=== PATIENT | female | born 1985 | race Caucasian/White ===

== ENCOUNTER 2017-06-05 10:51 | Inpatient (IN) ==
[2017-06-05] MEDS ORDERED: KETOROLAC 30 MG/ML INJECTION IVP ONE (11:19)
[2017-06-05] MEDS ORDERED: CEFTRIAXONE (ER USE ONLY) 1 GM in NS 100 ML IV ONE (11:19)
--- NOTE | 2017-06-05 11:22 | Emergency Department Report ---
Ear HPI - General Chief complaint: Ear Stated complaint: double ear pain Time Seen by Provider: 06/05/17 10:52 Source: patient Mode of arrival: ambulatory Limitations: no limitations - History of Present Illness HPI Narrative: She was seen in the [facility] on 06/02 for otitis externa. She was started on eardrops, right ear wick as well as oral amoxicillin. In continued to worsen and patient presented to the emergency room the following day on . At that time. Left ear began hurting patient had ear wick placed. She was given Toradol and encouraged to continue antibiotic medications. Today patient presents back to the emergency room for continued bilateral ear pain, worsening right-sided neck and right mastoid pain. Continues to have bilateral ear drainage, appears uncomfortable. MD Complaint: ear pain, ear discharge Location: bilateral Duration: constant Severity: moderate Relieving factors: NDAIDs, prescription analgesics, ear drops Context: recent illness Discharge from ear: yes - clear Associated symptoms ear: decreased hearing, external ear tenderness, ear swelling, neck swelling Treatment prior to arrival: eardrops, attempt at ear wax removal, oral analgesic - Related Data Home Medications Medication Instructions Recorded Confirmed Amoxicillin 500 mg PO TID 06/05/17 06/05/17 Neomycin/Polymyxin B/Hydrocort 4 drop RIGHT EAR QID 06/05/17 06/05/17 [Qmyknrml-Awtidzccr-Nx Ear Soln] Previous Rx's Medication Instructions Recorded Hydrocodone/APAP 5/325 [[place] 1 tab PO Q6HR PRN #10 tab 06/03/17 5/325] Allergies Allergy/AdvReac Type Severity Reaction Status Date / Time No Known Allergies Allergy Unverified 06/05/17 11:02 Review of Systems All systems: reviewed and negative except as stated ENT: Reports: as per HPI, ear pain, throat pain, other (bilteral ear drainage) Hematological/Lymphatic: Reports: as per HPI, lymphadenopathy, other (right mastoid tenderness and swelling) Allergic/Immunologic: Reports: facial swelling PFS Patient Stated Medical History Other HEENT Yes: FREQUENT EAR INFECTIONS PER PT Now No Clinic Medical History (Last Reviewed 06/02/17 @ 15:56 by Marixa Osborne Sydney) History of back problems (Chronic Medical) Asthma (Chronic Medical) Surgical History: *None Family History: Family History (Last Reviewed 01/18/18 @ 15:57 by LEONARDO Taylor) Father Diabetes Paternal Grandmother Diabetes Paternal Aunt Diabetes Mother Asthma - Social History Smoking status: Current some day smoker Substance use type: does not use Alcohol intake frequency: does not drink Housing: house Current residence: Apartment/Private Home Physical Exam - Limitations Limitations: no limitations - General General appearance: alert - Normal Exams: Head:: Normocephalic without trauma Eyes:: Pupils are PERRLA w/ EOMI Chest/Respirations:: Clear all al[place], with good airflow, and symmetry bilaterally Cardiovascular:: Regular rate and rhythm, without murmur or gallop, Pulses 2+ all extremities, capillary refill, <2 seconds all extremities Abdomen:: Bowel sounds positive, soft, non-tender, non-distended, no hepatosplenomegaly, masses or bruits noted Neurological:: Patient is alert, and oriented, cranial nerves, motor/sensory/ cerebellar, exams w/o gross deficits, to observation Psychiatric:: Patient exhibits, appropriate attention, emotion and affect - Expanded ENT Exam External ear exam: Present: mastoid tenderness (right), pain with movement, periauricular adenopathy (right). Absent: auricular hematoma TM/Canal exam: Bilateral TM: loss of landmarks, canal discharge, canal tenderness Nose exam: Absent: sinus tenderness, nasal deviation, septal hematoma Nasal speculum exam: Bilateral: normal Mouth exam: Present: normal external inspection. Absent: tongue swelling, laceration Throat exam: Present: normal inspection. Absent: tonsillar erythema, tonsillar exudate - Expanded Neck Exam Neck exam focused ED: Present: tenderness (other) (right mastoid and lateral cervicle neck tenderness) Course Vital Signs Pulse Rate 83 06/05/17 11:02 Respiratory Rate 16 06/05/17 11:02 Blood Pressure 131/84 06/05/17 11:02 Pulse Oximetry 96 06/05/17 11:02 Temperature 98.1 F 06/05/17 13:27 Pulse Rate 64 06/05/17 13:27 Respiratory Rate 16 06/05/17 13:27 Blood Pressure 126/59 06/05/17 13:27 Pulse Oximetry 98 06/05/17 13:27 Ear - MDM Narrative Medical decision making narrative: 1305- [facility]. Suggest history, present illness , clinical exam, lab and x-ray findings 1320- Spoke with Dr Everett paredes ENT. He agrees with admission and IV antibiotics. He is able to see patient tomorrow in consultation. Admit patient as inpatient as she has failed outpatient treatment. Suspect she has bilateral otitis with lymphadenopathy and new onset diabetes. Past plan for admission with patient and she is in agreement. - Differential Diagnosis Likely: otitis externa, otitis media, ruptured TM - Lab Data Attestation: I reviewed the patient's lab results. Result diagrams: 06/05/17 11:31 06/05/17 11:31 Lab Results 06/05/17 06/05/17 06/05/17 Range/Units 11:31 11:31 11:31 WBC 18.6 H (4.5-11.0) T/MM3 RBC 4.35 (4.00-5.20) M/MM3 Hgb 13.1 (12-16) GM/DL Hct 38.9 (36-46) % MCV 89.4 (80-100) UM3 MCH 30.1 (26-34) UUG MCHC 33.7 (31-37) GM/DL RDW Std Deviation 41.3 (36.9-50.2) FL Plt Count 306 (130-400) T/MM3 MPV 9.9 (9.4-12.4) UM3 Immature Gran % (Auto) Not performed Neut % (Auto) Not performed Lymph % (Auto) Not performed [place] % (Auto) Not performed Eos % (Auto) Not performed Baso % (Auto) Not performed Neut # (Auto) Not performed Lymph # (Auto) Not performed [place] # (Auto) Not performed Eos # (Auto) Not performed Baso # (Auto) Not performed Abs Immat Gran (auto) Not performed Neutrophils % (Manual) 68.0 H (33-66) % Band Neutrophils % 1.0 (0-6) % Lymphocytes % (Manual) 26.0 (23-45) % Monocytes % (Manual) 4.0 (0-9.0) % Basophils % (Manual) 1.0 (0-2) % Neutrophils # (Manual) 12.6 H (1.8-7.7) T/MM3 Band Neutrophils # 0.2 T/MM3 Lymphocytes # (Manual) 4.8 (1-4.8) T/MM3 Monocytes # (Manual) 0.7 (0-0.8) T/MM3 Basophils # (Manual) 0.2 (0-0.2) T/MM3 RBC Morph Comment Normal Turbidity < 20 (0-20) Sodium 139 (134-144) MEQ/L Potassium 4.4 (3.6-5) MEQ/L Chloride 102 (98-107) MEQ/L Carbon Dioxide 26 (22-30) MEQ/L Anion Gap 11 (5-15) MEQ/L BUN 13.0 (7-17) MG/DL Creatinine 0.5 L (0.7-1.2) MG/DL GFR Calculation 145 BUN/Creatinine Ratio 26 (6-26) RATIO Glucose 320 H (65-110) MG/DL Calculated Osmolality 280 (261-280) MOSM/KG Calcium 9.2 (8.4-10.2) MG/DL Icterus Index < 2 (0-7) Plasma Lactate 1.1 (0.6-2.2) MMOL/L Serum , Qual Negative (Negative) Specimen Hemolysis 76 H (0-25) - Radiology Data Attestation: I reviewed the patient's radiology results. Disposition Clinical Impression: Bilateral otitis media with effusion, Diabetes mellitus, new onset Disposition: 02 To [facility] Acute Care Condition: Stable Prescriptions: No Action Neomycin/Polymyxin B/Hydrocort [Zvegqrzm-Ipfxhmxim-Kn Ear Soln] 4 drop RIGHT EAR QID Hydrocodone/APAP 5/325 [[place] 5/325] 1 tab PO Q6HR PRN #10 tab PRN Reason: pain Amoxicillin 500 mg PO TID Time of Disposition: 13:32 - Seen By: midlevel
[2017-06-05] MEDS ORDERED: SALINE FLUSH 10ml SYRINGE IV ONE (11:25)
[2017-06-05] MEDS: NS 1,000 ML IV SCH ×4 (12:00→16:38)
[2017-06-05] MEDS: ONDANSETRON 4 MG/2 ML INJECTION IVP PRN (12:01)
[2017-06-05] MEDS ORDERED: SALINE FLUSH 10ml SYRINGE ONE (12:10)
[2017-06-05] MEDS ORDERED: IOHEXOL 300mg/ml 75ml INJECTION ONE (12:10)
[2017-06-05] MEDS ORDERED: NS 100 ML ONE (12:10)
--- NOTE | 2017-06-05 14:16 | History & Physical Report ---
History of Present Illness Date: 06/05/17 Chief complaint: Bilateral severe ear pain HPI: Minerva is a very pleasant 32 yo female who has been struggling with severe ear pain since around . She attempted OTC analgesics, ear wax removal, etc. She continued to worsen, and was seen in Urgent Care with ear wick placement and antibiotic initiation. Left ear began hurting, so she presented to the ER. Ear wick to left ear was placed, antibiotics continued. She presented to the ER again today due to severity of pain, ongoing drainage, and difficulty closing mouth. She has a long history of recurrent ear infections , so she was attempting to manage at home to the best of her ability. She did undergo a CT, which confirmed bilateral OE, and also acute mastoiditis. Dr. Peguero was consulted by the ER, and is agreeable to seeing patient tomorrow. Patient reports that she did have a "cold" within the last two weeks. Those symptoms were fairly mild. Denies SOA or persistent cough currently. Her BG was found to be elevated in the ER- she has no person history of known DM. Multiple family members with diabetes. She also reports that her BP has been elevated intermittently at her recent UC/ ED visits. She does not think she has a prior history of HTN. No current PCP, so she has not had a physical in some time. Chart is reviewed- she is noted to have a history of GBS labial abscess in the past requiring local wound intervention. She denies history of surgical intervention. Has been otherwise healthy with the exception of intermittent asthma. Review of Systems - Constitutional Constitutional: Present: fever(s), headache(s) - EENMT Ears: Present: ear discharge, ear pain, other (Diminished hearing. ) Balance: Absent: vertigo, ataxia Nose: Absent: change in smell, obstruction Mouth/Throat: Present: pain (Difficulty eating due to jaw pain.). Absent: sore throat, painful swallowing - Cardiovascular Cardiovascular: Absent: chest pain, dyspnea on exertion, edema - Respiratory Respiratory: Absent: cough, dyspnea, dyspnea on exertion - Gastrointestinal Gastrointestinal: Absent: abdominal pain, change in bowel habits, nausea - Musculoskeletal Musculoskeletal: Absent: back pain, limited range of motion - Neurological Neurological: Absent: abnormal gait, abnormal movements, headache(s) - Allergic/Immunologic Allergic/Immunologic: Absent: tongue swelling, throat swelling Past Medical History Patient Stated Medical History Other HEENT Yes: FREQUENT EAR INFECTIONS PER PT Now No Clinic Medical History (Last Reviewed 06/02/17 @ 15:56 by LEONARDO Taylor) History of back problems (Chronic Medical) Asthma (Chronic Medical) Surgical History: *None Family History: Family History Father Diabetes Paternal Grandmother Diabetes Paternal Aunt Diabetes Mother Asthma Family History Updates: I have reviewed PMH/PSH/FH/SH with pt. - Social History Smoking status: Current some day smoker Substance use type: does not use Alcohol intake frequency: a few times a month Housing: house Household members: spouse Current residence: Apartment/Private Home Medications Home Medications Medication Instructions Recorded Confirmed Type Amoxicillin 500 mg PO TID 06/05/17 06/05/17 History Neomycin/Polymyxin B/Hydrocort 4 drop RIGHT EAR QID 06/05/17 06/05/17 History [Lqbqwfoh-Rojaksgmu-Gl Ear Soln] Allergies Allergy/AdvReac Type Severity Reaction Status Date / Time No Known Allergies Allergy Unverified 06/05/17 11:02 Exam Vital Signs: Temperature 98.1 F 06/05/17 13:27 Pulse Rate 64 06/05/17 13:27 Respiratory Rate 16 06/05/17 13:27 Blood Pressure 126/59 06/05/17 13:27 Pulse Oximetry 98 06/05/17 13:27 Height/Weight/BMI: Height 1.57 m Weight 103.8 kg - Constitutional Present: no acute distress, well nourished, well developed, morbidly obese, cooperative - Routine HEENT Exam Head: Present: normocephalic, atraumatic, facial swelling Eye: Present: EOMI, PERRL ENT: Present: mucous membranes dry Comments: Patient unable to fully open mouth due to pain. Tongue is dry. No visible lesions of oropharynx. - Detailed ENT Exam Ear: Present: canal tenderness, canal discharge, canal swelling Oral mucosa: Present: dry. Absent: palatal petechiae Comments: I deferred ear canal exam due to severe pain/tenderness. Patient is SAMISH due to fluid in the ear. - Routine Neck Exam Present: supple, full ROM, lymphadenopathy, tenderness. Absent: swelling Comments: Full ROM. No neck tenderness with movement. She denies SANCHEZ. - Routine Chest/Breast/Axilla Exam Chest wall: Absent: tenderness Breast: Absent: tenderness - Routine Respiratory Exam Present: CTA bilaterally. Absent: accessory muscle use, dyspnea, decreased breath sounds, rales, rhonchi, wheezes - Routine Cardiovascular Exam Present: RRR, S1, S2, no murmur - Routine Abdominal Exam Present: soft, normoactive bowel sounds, non distended, non tender - Routine Extremities Exam Present: no edema, non tender - Routine Back/Spine/Pelvis Exam Back/Spine: Present: full ROM. Absent: vertebral tenderness, pain with flexion - Routine Skin Exam Present: intact, dry, warm - Routine Neurological Exam Present: alert, oriented X3, abnormal gait, moving all extremities, normal speech. Absent: sensory deficit, motor deficit, hearing grossly intact ( Hearing is diminished due to effusions. ) She is fully alert, moving w/o difficulty. Participates in exam w/o difficulty. - Routine Psychiatric Exam Present: normal affect, normal thought process, cooperative, good insight, good judgment Results - Labs CBC & Chem 7: 06/05/17 11:31 06/05/17 11:31 - Imaging and Cardiology CT scan - head Status: image reviewed by me Additional comments: Bilateral OE. Bilateral mastoid effusions. Some cervical LAD. Assessment and Plan (1) Acute pain Current visit: Yes Status: Acute (2) Morbid obesity with BMI of 40.0-44.9, adult Current visit: Yes Status: Acute (3) Bilateral otitis media with effusion Current visit: Yes Status: Acute (4) Diabetes mellitus, new onset Current visit: Yes Status: Acute Assessment and Plan: Impression: 1. Severe bilateral OE with mastoiditis, failed outpatient treatment. 2. DM2, new onset. 3. Acute pain 4. Morbid obesity 5. Hx of Asthma Plan: 06/05/16 Consult ENT- Notified by ER. He will see tomorrow. Start IV Zosyn for broad coverage. Will ask RN to get cx of drainage if possible. Suspect difficulty with treating due to DM2. Will add steroids, pain control. Assess A1c, monitor Accu checks. I did d/w pt- we will use insulin right now- may be able to transition to oral meds before dismissal. Steroids will increase her BG- will need to monitor. SOFYA depending on pain. Pain control. Monitor BP. Assess thyroid, FLP. PRN Albuterol if any wheezing. 06/05/2017-5:20 PM-I reviewed this chart, the patient history, and the PROPERTY FIELD ADJUSTER's/PA 's documented findings as above. We discussed and formulated the assessment and plan as above with the additions below.-Dr. Malcolm The patient was seen this evening in her room. She had multiple family members present. She stated that she had a cold a couple of weeks ago and then last on June 02 she noticed pain and drainage from her right ear. She went to immediate care and an ear wick was placed and she was started on amoxicillin. Then yesterday she had pain and drainage in the left ear and a wick was placed in this ear as well and she was started on [place] for pain. She presented to the emergency room today because she was having increased pain in both the ears and swelling around the right ear and under her jaw. She has had no fevers. She states her jaw hurts to eat. She was given pain medications and her pain is now a 3 on a scale of 1-10. She denies any headache. She denies any chest pain. She has history of asthma as a child and has sometimes needed breathing treatments or an inhaler in adulthood but has not had problems in quite a while. She denies any cough or shortness of breath. She denies nausea, vomiting or diarrhea. She was found to have a blood sugar of 320 in the emergency room. She has not previously been diagnosed with diabetes. Other than asthma and frequent ear infections, she has been healthy. She has not had any surgeries in the past. Patient states that she uses earplugs at work and wonders if this may have contributed to her otitis externa. On exam she is alert and oriented and in no acute distress. She appears nontoxic. HEENT reveals sclerae to be anicteric and pupils are equal. Oropharynx is moist. She has swelling and tenderness below the angle of the jaw on the right. She has some tenderness over the mastoid on the right but not on the left. She has some drainage from both ears. Neck is supple. Chest is clear to auscultation. Cardio vascular reveals a regular rate and rhythm. Abdomen is soft and nontender. Extremities are free of edema. Skin is warm and dry and without rashes. Impression and plan Bilateral otitis externa, and mastoiditis-she was given Rocephin in the emergency room and will start Zosyn. Dr. Peguero was notified of the patient and findings on her CT by ER GREEN MARKETER. He recommended admission and IV antibiotics and he would see the patient on Tuesday. Newly diagnosed, poorly controlled diabetes-check hemoglobin A1c, diabetes education, initiate Lantus, sliding scale insulin Morbid obesity History of asthma-I did encourage the patient to notify the nurse if she should have any difficulties with her breathing. I did encouraged patient to establish with a primary care provider at discharge. DVT Prophylaxis: Lovenox GI Prophylaxis: other (PPI) Resuscitation Status: Full Code - Time spent with patient Time with patient PN: 50 minutes - Physician Narrative Physician: Letitia Malcolm MD Narrative: Date: 06/05/17 Time: 1410 Hospital Course Summary Disclaimer: The visit summary below is not to be considered part of the above Progress Note. Hospital Course: Impression: 1. Severe bilateral OE with mastoiditis, failed outpatient treatment. 2. DM2, new onset. 3. Acute pain 4. Morbid obesity 5. Hx of Asthma Plan: 06/05/16 Consult ENT- Notified by ER. He will see tomorrow. Start IV Zosyn for broad coverage. Will ask RN to get cx of drainage if possible. Suspect difficulty with treating due to DM2. Will add steroids, pain control. Assess A1c, monitor Accu checks. I did d/w pt- we will use insulin right now- may be able to transition to oral meds before dismissal. Steroids will increase her BG- will need to monitor. SOFYA depending on pain. Pain control. Monitor BP. Assess thyroid, FLP. PRN Albuterol if any wheezing.
[2017-06-05] MEDS ORDERED: GLUCOSE ORAL GEL 40% 37.5gm PO PRN (15:23)
[2017-06-05] MEDS ORDERED: HYDROMORPHONE 2 MG/ML INJECTION IVP PRN (15:23)
[2017-06-05] MEDS ORDERED: DEXTROSE 50% SYRINGE 50ml (1 AMP) IVP PRN (15:23)
[2017-06-05 15:29] VITALS: BMI 42.7
--- NOTE | 2017-06-05 15:54 | CT Scan Report ---
Indication: Right neck swelling, mastoid tenderness CT soft tissue neck w con: Comparison: None Technique: Patient scanned from the midbrain to the upper chest after 100 cc Omni 300 intravenous contrast is used with dose reduction imaging technology and reformatted sagittal, coronal as well as initial axial images. Findings: Patient demonstrated no acute findings in the base of the neck or upper chest. Vascular structures are intact. Visualized sinuses showed mild thickening the nasal turbinates but no acute sinus abnormality was appreciated. Patient does show soft tissue swelling about both the external auditory canals which show almost complete opacification. There are some subtle opacified mastoid air cells as well. No fracture or bony destructive lesion appreciated. Nasal and oropharyngeal soft tissues were unremarkable. Patient showed some cervical lymph nodes some of which are measuring about a centimeter. The airway is patent. Focal cord and lower cervical region are unremarkable. Patient shows some no acute bony findings in the cervical spine. Impression: 1. Patient showed extensive soft tissue swelling with what appear to be a opacification of both external ear canals with minimal fluid in some of the mastoid air cells. 2. No marked sinus disease or soft tissue swelling about the nasal oropharynx. 3. Nonspecific cervical lymph nodes which are most likely reactive to the inflammatory changes in the external ears. 4. No additional acute findings. .
[2017-06-05] MEDS: METHYLPREDNISOLONE SOD SUCC 125mg/2ml INJECTION IVP SCH ×2 (16:09→20:40)
[2017-06-05] MEDS: PIPERACILLIN/TAZOBACTAM 3.375 GM in NS 100 ML IV SCH ×2 (16:10→20:40)
[2017-06-05] MEDS: SALINE FLUSH 10ml SYRINGE IV PRN (16:10)
[2017-06-05] MEDS: HYDROCODONE/APAP 2.5mg-108mg/5ml ORAL LIQUID PO PRN (16:21)
[2017-06-05] MEDS ORDERED: INSULIN ASPART 100unit/ml INJECTION SQ SCH (20:30)
[2017-06-05] MEDS ORDERED: INSULIN GLARGINE 100unit/ml INJECTION SQ SCH (21:00)
[2017-06-06] MEDS: NS 1,000 ML IV SCH ×3 (02:18→11:19)
[2017-06-06] MEDS: HYDROCODONE/APAP 2.5mg-108mg/5ml ORAL LIQUID PO PRN ×2 (02:25→12:21)
[2017-06-06] MEDS: PIPERACILLIN/TAZOBACTAM 3.375 GM in NS 100 ML IV SCH ×4 (02:26→23:37)
[2017-06-06] MEDS: METHYLPREDNISOLONE SOD SUCC 125mg/2ml INJECTION IVP SCH ×3 (02:26→18:03)
[2017-06-06] MEDS: ONDANSETRON 4 MG/2 ML INJECTION IVP PRN ×2 (03:49→12:21)
[2017-06-06] MEDS ORDERED: ALBUTEROL 2.5mg/3ml (0.083%) NEB AEROSOL PRN (04:39)
[2017-06-06] MEDS: INSULIN ASPART 100unit/ml INJECTION SQ PRN ×4 (06:16→22:09)
[2017-06-06] MEDS ORDERED: INSULIN ASPART 100unit/ml INJECTION SQ ONE (07:00)
[2017-06-06] MEDS: PANTOPRAZOLE 40 MG INJECTION IVP SCH (08:49)
--- NOTE | 2017-06-06 10:17 | Progress Note ---
- Date 06/06/17 Subjective: Minerva was just finishing up a conversation with our dietitian about a carbohydrate consistent diet. She states that she recently [place] [employer] to [place], and her told her that he will help her eat the right foods. Minerva also states that she has 2 sisters who have diabetes, and they have offered to help her. She states her pain is much better today, it has gone down from a 9/10 to 5-6/10. She is able to eat more easily. She can hear a little bit out of her left ear today. She hasn't been able to sleep well for the last few nights, only 1-2 hours a night. Objective Vital signs: Temperature 97.2 F 06/06/17 07:37 Pulse Rate 66 06/06/17 07:37 Respiratory Rate 16 06/06/17 07:37 Blood Pressure 146/76 H 06/06/17 07:37 Pulse Oximetry 99 06/06/17 07:37 Height/Weight/BMI: Height 1.57 m Weight 106.6 kg Body Mass Index 42.7 - Constitutional Present: no acute distress, well nourished, well developed - Routine HEENT Exam Eye: Present: PERRL. Absent: conjunctival icterus, scleral injection ENT: Present: mucous membranes moist. Absent: oropharynx clear (dried drainage to both ear canals), external ear normal (mild swelling) Comments: Hirsutism. Bilateral cervical and preauricular lymphadenopathy - Routine Respiratory Exam Present: CTA bilaterally - Routine Cardiovascular Exam Present: RRR, S1, S2 - Routine Abdominal Exam Present: soft, normoactive bowel sounds, non distended, non tender - Routine Extremities Exam Present: no edema - Routine Skin Exam Present: intact, dry, warm - Routine Neurological Exam Present: alert, oriented X3 - Routine Lymphatic Exam Lymphatic: Present: adenopathy - Routine Psychiatric Exam Present: normal affect, normal thought process, cooperative Results - Labs CBC & Chem 7: 06/08/17 03:53 06/08/17 03:53 Microbiology Results: Microbiology 06/05/17 15:34 Peripheral/Iv Start Blood Culture - Preliminary Culture Initiated - Results Pending 06/05/17 15:40 Peripheral/Iv Start Blood Culture - Preliminary Culture Initiated - Results Pending Assessment and Plan (1) Bilateral otitis media with effusion Status: Acute (2) Diabetes mellitus, new onset Status: Chronic (3) Acute pain Status: Acute (4) Morbid obesity with BMI of 40.0-44.9, adult Status: Chronic Assessment and Plan: Impression: 1. Severe bilateral OE with mastoiditis, failed outpatient treatment. 2. DM2, new onset and poorly controlled. Hemoglobin A1c was 11.8% 3. Acute pain 4. Morbid obesity 5. Hx of Asthma Plan: 06/06/16 Continue Zosyn and Cortisporin otic, day #2. Anticipate evaluation by Dr. Peguero today. Symptoms are improving. White count has decreased to 16,000. She has been afebrile. BC pending. DC IVF. Taper IV steroids (Solu-Medrol 62.5 mg) from QID to TID. Continue [place] suspension for pain control. Continue carbohydrate consistent diet and diabetic education. She will need outpatient education. Blood sugars continue to run very high, 300-400+. Will consult Dr. Turpin - discussed case with him and he will see her later today. TSH was normal at 3.69. Discussed with dietitian, Anne Marie Silva. Addendum by Dr. James: Seen and examined patient on same day as the above note. Agree with subjective note, physical exam, assessment and plan. Comprehensive physical findings correlate to the above note. Documented on Dragon speech to text. Efforts to correct speech recognition errors performed, but variation may exist DVT Prophylaxis: SCD's GI Prophylaxis: Protonix Resuscitation Status: Full Code - Physician Narrative Narrative: Date: 06/06/17 Time: 1015 Hospital Course Summary Disclaimer: The visit summary below is not to be considered part of the above Progress Note. Hospital Course: Plan: 06/05/17 Consult ENT- Notified by ER. He will see tomorrow. Start IV Zosyn for broad coverage. Will ask RN to get cx of drainage if possible. Suspect difficulty with treating due to DM2. Will add steroids, pain control. Assess A1c, monitor Accu checks. I did d/w pt- we will use insulin right now- may be able to transition to oral meds before dismissal. Steroids will increase her BG- will need to monitor. SOFYA depending on pain. Assess thyroid, FLP. PRN Albuterol if any wheezing. 06/06/17 Continue Zosyn and Cortisporin otic, day #2. Anticipate evaluation by Dr. Peguero today. Symptoms are improving. White count has decreased to 16,000. She has been afebrile. BC pending. DC IVF. Taper IV steroids (Solu-Medrol 62.5 mg) from QID to TID. Continue [place] suspension for pain control. Continue carbohydrate consistent diet and diabetic education. She will need outpatient education. Blood sugars continue to run very high, 300-400+. Will consult Dr. Turpin - discussed case with him and he will see her later today. TSH was normal at 3.69.
[2017-06-06] MEDS ORDERED: INSULIN ASPART 100unit/ml INJECTION SQ SCH (17:00)
--- NOTE | 2017-06-06 18:59 | Consultation ---
DATE OF CONSULT 06/06/2017 REASON FOR CONSULTATION Newly diagnosed diabetes mellitus. HISTORY OF PRESENT ILLNESS This 32-year-old female has had a chronic history of otitis externa. She recently had another exacerbation and was seen in Urgent Care, then the emergency room, then again presented on the day of admission to the emergency room with increasing severity of pain, ongoing drainage and difficulty closing her mouth even though she had been started on antibiotics. She had a CT scan that confirmed bilateral otitis externa and acute mastoiditis so she was admitted to the hospital. In the course of her admission she was found to have an elevated serum glucose of 457. She has no prior history of diabetes. However, she did report having polydipsia and polyuria as well as nocturia. She denied any history of thyroid problems, headaches, blurry vision, chest pain or neuropathy. She was given 10 units of Lantus last night, but glucose levels did not respond much. FBS was 337 and after breakfast joyce back to 418. She was also started on steroids which will likely exacerbate the hyperglycemia. REVIEW OF SYSTEMS ENT: Remarkable for ear discharge and pain with diminished hearing. She has had some difficulty eating due to jaw pain. She denies sore throat or trouble swallowing. RESPIRATORY: Remarkable for intermittent exacerbations of asthma. CARDIOVASCULAR: No LANE or edema. GI: No change of bowel habits or abdominal pain. MUSCULOSKELETAL: No back pain or myalgias. Neurological: No headache or paresthesias. PAST MEDICAL HISTORY Recurrent otitis externa and asthma. PAST SURGICAL HISTORY She has had no surgeries. FAMILY HISTORY Remarkable for diabetes in her father, paternal grandmother and paternal aunt. Mother has asthma. There is also family history of hypothyroidism. SOCIAL HISTORY The patient drinks alcohol and smokes tobacco socially a few times a month. She has a remote past history of using marijuana. PHYSICAL EXAMINATION VITAL SIGNS: Afebrile. Blood pressure 146/76, pulse 69, respirations 16. GENERAL: Well-developed, well-nourished, obese female, alert, oriented and in no acute distress. HEENT: Atraumatic, normocephalic. Bilateral mastoid tenderness. EOMI, PERRL. Dry mucous membranes. NECK: Without thyromegaly or lymphadenopathy. LUNGS: Clear. HEART: Regular rate and rhythm. ABDOMEN: Normal bowel sounds without masses, tenderness or organomegaly. EXTREMITIES: Without edema. 2+ radial and dorsalis pedis pulses. SKIN: Warm and dry. NEUROLOGIC: Moves all extremities. PSYCHIATRIC: Normal affect. Normal thought process with good insight and good judgment. LABORATORY Glucometer readings: 337 fasting, 418 after breakfast, 404 after lunch. Creatinine 0.5, ALT 60, cholesterol 184, triglycerides 108, HDL 29, LDL 133, TSH 3.69. HgA1c 11.8. WBC 16.0 with 91% neutrophils. ASSESSMENT 1. Diabetes mellitus, newly diagnosed, probably type 2 considering her lack of acidosis with an acute infection. To further assess this we will get a simultaneous glucose and C-peptide. 2. Dyslipidemia. This should be remeasured after her diabetes is brought into better control although she appears to need a statin as the LDL would not be expected to drop 30%. 3. Obesity. 4. Bilateral otitis externa and mastoiditis. RECOMMENDATIONS Start scheduled insulin delivery with 6 units NovoLog for meals and 18 units Lantus at bedtime. Continue sliding scale for delivering correction doses. C- peptide and glucose will be measured fasting in the morning. Start atorvastatin 10 mg daily. Thank you very much for asking my assistance in caring for this pleasant young lady. I will continue to follow her along with you during her hospitalization. GISELA
[2017-06-06] MEDS: INSULIN GLARGINE 100unit/ml INJECTION SQ SCH (22:11)
[2017-06-06] MEDS: ATORVASTATIN 10 MG TABLET PO SCH (23:37)
[2017-06-06] MEDS: SALINE FLUSH 10ml SYRINGE IV PRN (23:38)
[2017-06-07] MEDS: METHYLPREDNISOLONE SOD SUCC 125mg/2ml INJECTION IVP SCH ×3 (03:22→17:14)
[2017-06-07] MEDS: PIPERACILLIN/TAZOBACTAM 3.375 GM in NS 100 ML IV SCH ×4 (04:49→21:19)
[2017-06-07] MEDS ORDERED: INSULIN ASPART 100unit/ml INJECTION SQ SCH ×14 (06:30→17:30)
[2017-06-07] MEDS ORDERED: INSULIN GLARGINE 100unit/ml INJECTION SQ ONE ×2 (07:37→21:42)
--- NOTE | 2017-06-07 07:51 | Endocrinology Progress Note ---
Subjective Principal diagnosis: Diabetes mellitus Interval history: Feels better. Good appetite. Now on scheduled insulin, but still quite hyperglycemic. Has had training on fingerstick glucose testing and has performed one herself. Should go on to receive training on insulin injection today. Exam Vital signs: Temperature 97.4 F 06/07/17 07:27 Pulse Rate 50 L 06/07/17 07:27 Respiratory Rate 18 06/07/17 07:27 Blood Pressure 147/75 H 06/07/17 07:27 Pulse Oximetry 98 06/07/17 07:27 - Constitutional no acute distress - Routine HEENT Exam Head: Present: normocephalic, atraumatic Eye: Present: EOMI, PERRL ENT: Present: mucous membranes moist - Routine Neck Exam Absent: lymphadenopathy, thyromegaly - Routine Respiratory Exam Absent: dyspnea - Routine Cardiovascular Exam Present: RRR. Absent: murmur - Routine Abdominal Exam Present: normoactive bowel sounds - Routine Extremities Exam Absent: edema - Routine Skin Exam Present: dry, warm - Routine Neurological Exam Present: alert, oriented X3, moving all extremities, normal speech - Routine Psychiatric Exam Present: normal affect, normal thought process, good insight, good judgment - Additional findings Additional findings: Laboratory Tests 06/06/17 06/07/17 06/07/17 20:59 04:58 04:58 WBC 14.7 H Neutrophils % (Manual) 91.0 H Glucose 369 H Glucometer 437 C-Peptide 06/07/17 04:58 WBC Neutrophils % (Manual) Glucose Glucometer C-Peptide Pending Assessment and Plan (1) Diabetes mellitus, new onset Current visit: Yes Status: Chronic Fasting glucose and C-peptide were drawn this morning to help determine whether this is type 1 or type 2 diabetes. Her age supports type 1, but her presentation is more consistent with type 2. In either case, she requires insulin therapy now, and more than would be otherwise necessary absent the infection and steroid treatment. Initial estimate at insulin requirements was inadequate and all doses have been titrated up aggressively. Will add more Lantus this morning for one dose, then advance HS dose tonight. For meals will advance to 12, 10, 10 units TID AC. (2) Current use of insulin Current visit: Yes Status: Acute Still must be trained on proper administration. Once self-reliant she could probably have the doses titrated from home when hospital dismissal is otherwise feasible. We should try to get glucose levels below 300 prior to dismissal, however. Doses will be titrated as rapidly as possible. (3) Dyslipidemia (high LDL; low HDL) Current visit: Yes Status: Chronic Has tolerated atorvastatin without problem after first dose. Continue long-term. (4) Morbid obesity with BMI of 40.0-44.9, adult Current visit: Yes Status: Chronic Dietitian has visited. Weight loss will aid diabetes control greatly, as I suspect she has a lot of insulin resistance and we will find her C-peptide level to be elevated.
[2017-06-07] MEDS: INSULIN ASPART 100unit/ml INJECTION SQ PRN (07:56)
[2017-06-07] MEDS: PANTOPRAZOLE 40 MG INJECTION IVP SCH (08:24)
[2017-06-07] MEDS ORDERED: NS FLUSH BAG 500ml IV PRN (10:33)
--- NOTE | 2017-06-07 12:07 | Progress Note ---
- Date 06/07/17 Subjective: Minerva is seen today in follow up for her newly diagnosed diabetes. She reports that she is feeling much better today and is pleased that she can hear better. She has been seen and evaluated by Dr. Turpin, endocrinology, who is monitoring her blood sugars closely and has initiated an insulin regimen. She states that her appetite is good and her bowels are moving. She denies any other complaints including no chest pain, shortness of breath, abdominal pain, nausea, vomiting or dysuria. Blood sugars remain elevated >300, but overall she is doing very well. Objective Vital signs: Temperature 97.4 F 06/07/17 07:27 Pulse Rate 50 L 06/07/17 07:27 Respiratory Rate 18 06/07/17 07:27 Blood Pressure 147/75 H 06/07/17 07:27 Pulse Oximetry 98 06/07/17 07:27 Height/Weight/BMI: Height 5 ft 2 in Weight 236 lb 8.896 oz Body Mass Index 42.7 Comments: sitting in bed, talking with certified court/medical interpreter, preparing to learn how to give herself insulin. - Constitutional Present: no acute distress, well nourished, well developed, cooperative Comments: pleasant affect and cheerful. - Routine HEENT Exam Head: Present: normocephalic, atraumatic Eye: Present: PERRL. Absent: conjunctival icterus ENT: Present: mucous membranes moist - Routine Respiratory Exam Present: CTA bilaterally. Absent: rales, respiratory distress, rhonchi, stridor , wheezes, crackles - Routine Cardiovascular Exam Present: RRR, S1, S2 - Routine Abdominal Exam Present: soft, normoactive bowel sounds, non distended, non tender Comments: obese - Routine Extremities Exam Present: non tender, full ROM, pulses intact - Routine Back/Spine/Pelvis Exam Back/Spine: Present: full ROM. Absent: vertebral tenderness - Routine Musculoskeletal Exam Musculoskeletal: Present: moving extremities well - Routine Skin Exam Present: intact, dry, warm. Absent: jaundice Comments: afebrile. - Routine Neurological Exam Present: alert, oriented X3, CN II-XII intact, moving all extremities, normal speech - Routine Lymphatic Exam Lymphatic: Absent: lymphedema - Routine Psychiatric Exam Present: cooperative Results - Labs CBC & Chem 7: 06/08/17 03:53 06/08/17 03:53 Microbiology Results: Microbiology 06/05/17 15:34 Peripheral/Iv Start Blood Culture - Preliminary No Growth After 1 Day 06/05/17 15:40 Peripheral/Iv Start Blood Culture - Preliminary No Growth After 1 Day Assessment and Plan (1) Bilateral otitis media with effusion Status: Acute (2) Diabetes mellitus, new onset Status: Chronic (3) Acute pain Status: Acute (4) Morbid obesity with BMI of 40.0-44.9, adult Status: Chronic Assessment and Plan: Impression: 1. Severe bilateral OE with mastoiditis, failed outpatient treatment. 2. DM2, new onset and poorly controlled. Hemoglobin A1c was 11.8% 3. Acute pain 4. Morbid obesity 5. Hx of Asthma Plan - 06/07/17 Overall. Minerva is doing well. Seen by Dr. Turpin (endocrinology) who continues to titrate insulin as needed. Continue current Novolog with 12 units at breakfast, 10 units at lunch and 10 units at dinner with Lantus 18 units HS. Monitor blood sugars closely. Continue Zosyn and Cortisporin otic, day #3. Anticipate evaluation by Dr. Peguero today. Symptoms are improving. She remains afebrile and WBC decreased to 14.7. Continue Solu-Medrol 62.5 mg TID. Will need to continue tapering. Will discuss tapering schedule with Dr. James. Continue [place] suspension for pain control. Patient denies any current pain and has not needed pain medications. Continue carbohydrate consistent diet and diabetic education. She will need outpatient education. Blood sugars continue to run very high, 300-400+. Will recheck labs in AM to monitor blood counts, electrolytes and renal function. Overall, patient is doing very well and anticipate discharge in near future. Addendum by Dr. James: Seen and examined patient on same day as the above note. Agree with subjective note, physical exam, assessment and plan. Comprehensive physical findings correlate to the above note. Documented on Dragon speech to text. Efforts to correct speech recognition errors performed, but variation may exist DVT Prophylaxis: SCD's GI Prophylaxis: Protonix Resuscitation Status: Full Code - Time spent with patient Time with patient PN: 25 minutes - Physician Narrative Physician: other (Dr. James) Narrative: Date: 06/07/17 Time: 1203 Hospital Course Summary Disclaimer: The visit summary below is not to be considered part of the above Progress Note. Hospital Course: Plan: 06/05/17 Consult ENT- Notified by ER. He will see tomorrow. Start IV Zosyn for broad coverage. Will ask RN to get cx of drainage if possible. Suspect difficulty with treating due to DM2. Will add steroids, pain control. Assess A1c, monitor Accu checks. I did d/w pt- we will use insulin right now- may be able to transition to oral meds before dismissal. Steroids will increase her BG- will need to monitor. SOFYA depending on pain. Assess thyroid, FLP. PRN Albuterol if any wheezing. 06/06/17 Continue Zosyn and Cortisporin otic, day #2. Anticipate evaluation by Dr. Peguero today. Symptoms are improving. White count has decreased to 16,000. She has been afebrile. BC pending. DC IVF. Taper IV steroids (Solu-Medrol 62.5 mg) from QID to TID. Continue [place] suspension for pain control. Continue carbohydrate consistent diet and diabetic education. She will need outpatient education. Blood sugars continue to run very high, 300-400+. Will consult Dr. Turpin - discussed case with him and he will see her later today. TSH was normal at 3.69. Plan - 06/07/17 Overall. Minerva is doing well. Seen by Dr. Turpin (endocrinology) who continues to titrate insulin as needed. Continue current Novolog with 12 units at breakfast, 10 units at lunch and 10 units at dinner with Lantus 18 units HS. Monitor blood sugars closely. Continue Zosyn and Cortisporin otic, day #3. Anticipate evaluation by Dr. Peguero today. Symptoms are improving. She remains afebrile and WBC decreased to 14.7. Continue Solu-Medrol 62.5 mg TID. Will need to continue tapering. Will discuss tapering schedule with Dr. James. Continue [place] suspension for pain control. Patient denies any current pain and has not needed pain medications. Continue carbohydrate consistent diet and diabetic education. She will need outpatient education. Blood sugars continue to run very high, 300-400+. Will recheck labs in AM to monitor blood counts, electrolytes and renal function. Overall, patient is doing very well and anticipate discharge in near future.
[2017-06-07] MEDS ORDERED: INSULIN ASPART 100unit/ml INJECTION SQ ONE (21:00)
[2017-06-07] MEDS: INSULIN GLARGINE 100unit/ml INJECTION SQ SCH (21:19)
[2017-06-07] MEDS: ATORVASTATIN 10 MG TABLET PO SCH (21:19)
[2017-06-08] MEDS: METHYLPREDNISOLONE SOD SUCC 125mg/2ml INJECTION IVP SCH ×2 (01:42→08:33)
[2017-06-08] MEDS: SALINE FLUSH 10ml SYRINGE IV PRN (01:42)
[2017-06-08] MEDS: INSULIN ASPART 100unit/ml INJECTION SQ PRN (06:34)
[2017-06-08] MEDS ORDERED: INSULIN ASPART 100unit/ml INJECTION SQ SCH ×8 (07:52→17:00)
--- NOTE | 2017-06-08 07:53 | Endocrinology Progress Note ---
Subjective Principal diagnosis: Diabetes mellitus Interval history: Feels well. Good appetite. Still titrating up insulin, yet quite hyperglycemic. Has had training on fingerstick glucose testing and has performed self- injection of insulin several times. Exam Vital signs: Temperature 97.1 F 06/08/17 07:43 Pulse Rate 40 L 06/08/17 07:43 Respiratory Rate 18 06/08/17 07:43 Blood Pressure 140/74 H 06/08/17 07:43 Pulse Oximetry 98 06/08/17 07:43 - Constitutional no acute distress, well nourished, well developed, obese - Routine HEENT Exam Head: Present: normocephalic, atraumatic Eye: Present: EOMI, PERRL ENT: Present: mucous membranes moist - Routine Neck Exam Absent: thyromegaly - Routine Respiratory Exam Absent: dyspnea - Routine Cardiovascular Exam Present: RRR. Absent: murmur - Routine Abdominal Exam Present: normoactive bowel sounds - Routine Extremities Exam Absent: edema - Routine Skin Exam Present: dry, warm - Routine Neurological Exam Present: alert, oriented X3, moving all extremities - Routine Psychiatric Exam Present: normal affect, normal thought process, good insight, good judgment - Additional findings Additional findings: Laboratory Tests 06/07/17 06/07/17 06/07/17 10:01 14:00 20:16 Glucose Glucometer 420 383 391 06/08/17 03:53 Glucose 325 H Glucometer Laboratory Tests 06/07/17 04:58 C-Peptide 4.22 H Assessment and Plan (1) Type 2 diabetes mellitus with hyperglycemia Current visit: Yes Status: Acute Fingerstick glucose just done is below 300 for first time. High C-peptide confirms type 2 DM which by now has become more obvious given the magnitude of insulin doses being required. Will see how postprandial glucose looks later to decide upon definite doses for home use. Will expect insulin needs to drop considerably after steroids are halted. Can contact me from home for further titration, then followup in my office in 2 weeks. (2) Current use of insulin Current visit: Yes Status: Acute Advised to call for glucose persisting in mid- to high 200's, or if it drops below 70 so dose can be adjusted. (3) Dyslipidemia (high LDL; low HDL) Current visit: Yes Status: Chronic Should go home on statin that we started here. (4) Morbid obesity with BMI of 40.0-44.9, adult Current visit: Yes Status: Chronic
[2017-06-08] MEDS: AMOX/CLAV 875 MG/125 MG TABLET PO SCH ×2 (08:33→20:25)
[2017-06-08] MEDS: PANTOPRAZOLE 40 MG INJECTION IVP SCH (08:33)
[2017-06-08] MEDS ORDERED: INSULIN ASPART 100unit/ml INJECTION SQ ONE ×3 (08:45→20:20)
--- NOTE | 2017-06-08 12:10 | Progress Note ---
- Date 06/08/17 Subjective: Minerva is seen this morning in follow-up. She is feeling significantly better and reports that she can now hear with resolution of her otitis. She denies having any nausea, abdominal pain, ear pain or shortness of breath. Unfortunately, she continues to be hyperglycemic, fasting sugar this morning was 325. Later morning fingerstick was over 400. Objective Vital signs: Temperature 97.1 F 06/08/17 07:43 Pulse Rate 40 L 06/08/17 07:43 Respiratory Rate 18 06/08/17 07:43 Blood Pressure 140/74 H 06/08/17 07:43 Pulse Oximetry 98 06/08/17 07:43 Height/Weight/BMI: Height 1.57 m Weight 108.5 kg Body Mass Index 42.7 - Constitutional Present: no acute distress, well nourished, well developed - Routine HEENT Exam Eye: Present: EOMI ENT: Present: mucous membranes moist, dentition normal - Routine Respiratory Exam Present: CTA bilaterally. Absent: wheezes - Routine Cardiovascular Exam Present: RRR. Absent: murmur - Routine Abdominal Exam Present: soft, normoactive bowel sounds, non distended. Absent: tenderness - Routine Extremities Exam Present: normal capillary refill - Routine Skin Exam Present: dry, warm - Routine Neurological Exam Present: alert, oriented X3, CN II-XII intact - Routine Lymphatic Exam Lymphatic: Absent: adenopathy - Routine Psychiatric Exam Present: normal affect Results - Labs CBC & Chem 7: 06/08/17 03:53 06/08/17 03:53 Microbiology Results: Microbiology 06/05/17 15:34 Peripheral/Iv Start Blood Culture - Preliminary No Growth After 2 Days 06/05/17 15:40 Peripheral/Iv Start Blood Culture - Preliminary No Growth After 2 Days Assessment and Plan (1) Bilateral otitis media with effusion Current visit: Yes Status: Acute (2) Diabetes mellitus, new onset Current visit: Yes Status: Chronic (3) Acute pain Current visit: Yes Status: Acute (4) Morbid obesity with BMI of 40.0-44.9, adult Current visit: Yes Status: Chronic Assessment and Plan: Impression: 1. Severe bilateral OE with mastoiditis, failed outpatient treatment. 2. DM2, new onset and poorly controlled. Hemoglobin A1c was 11.8% 3. Acute pain 4. Morbid obesity 5. Hx of Asthma 06/08 Appreciate ongoing guidance as per Dr. Turpin for better glycemic control. NovoLog has been increased to 34 units with meals, and Lantus 36 units with meals. She continues on Zosyn and Cortisporin otic, day #4. She received Solu-medrol this morning. Steroids then discontinued. This will help decrease blood sugars. Persistent leukocytosis, which may also be secondary to steroid use Continue to monitor sugars this afternoon, possible discharge later today or tomorrow. Case discussed with attending, Dr. James Addendum: Seen and examined patient on same day as the above note. Agree with nurse practitioner Sunita Galeas's assessment and plan. Comprehensive physical findings correlate to the above note. Documented on Dragon speech to text. Efforts to correct speech recognition errors performed, but variation may exist - Physician Narrative Narrative: Date: 06/08/17 Time: 1202 Hospital Course Summary Disclaimer: The visit summary below is not to be considered part of the above Progress Note. Hospital Course: Plan: 06/05/17 Consult ENT- Notified by ER. He will see tomorrow. Start IV Zosyn for broad coverage. Will ask RN to get cx of drainage if possible. Suspect difficulty with treating due to DM2. Will add steroids, pain control. Assess A1c, monitor Accu checks. I did d/w pt- we will use insulin right now- may be able to transition to oral meds before dismissal. Steroids will increase her BG- will need to monitor. SOFYA depending on pain. Assess thyroid, FLP. PRN Albuterol if any wheezing. 06/06/17 Continue Zosyn and Cortisporin otic, day #2. Anticipate evaluation by Dr. Peguero today. Symptoms are improving. White count has decreased to 16,000. She has been afebrile. BC pending. DC IVF. Taper IV steroids (Solu-Medrol 62.5 mg) from QID to TID. Continue Moran suspension for pain control. Continue carbohydrate consistent diet and diabetic education. She will need outpatient education. Blood sugars continue to run very high, 300-400+. Will consult Dr. Turpin - discussed case with him and he will see her later today. TSH was normal at 3.69. Plan - 06/07/17 Overall. Minerva is doing well. Seen by Dr. Turpin (endocrinology) who continues to titrate insulin as needed. Continue current Novolog with 12 units at breakfast, 10 units at lunch and 10 units at dinner with Lantus 18 units HS. Monitor blood sugars closely. Continue Zosyn and Cortisporin otic, day #3. Anticipate evaluation by Dr. Peguero today. Symptoms are improving. She remains afebrile and WBC decreased to 14.7. Continue Solu-Medrol 62.5 mg TID. Will need to continue tapering. Will discuss tapering schedule with Dr. James. Continue Moran suspension for pain control. Patient denies any current pain and has not needed pain medications. Continue carbohydrate consistent diet and diabetic education. She will need outpatient education. Blood sugars continue to run very high, 300-400+. Will recheck labs in AM to monitor blood counts, electrolytes and renal function. Overall, patient is doing very well and anticipate discharge in near future. 06/08 Appreciate ongoing guidance as per Dr. Turpin for better glycemic control. NovoLog has been increased to 34 units with meals, and Lantus 36 units with meals. She continues on Zosyn and Cortisporin otic, day #4. She received Solu-medrol this morning. Steroids then discontinued. This will help decrease blood sugars. Persistent leukocytosis, which may also be secondary to steroid use Continue to monitor sugars this afternoon, possible discharge later today or tomorrow. Case discussed with attending, Dr. James
[2017-06-08] MEDS: ATORVASTATIN 10 MG TABLET PO SCH (20:26)
[2017-06-08] MEDS ORDERED: INSULIN GLARGINE 100unit/ml INJECTION SQ SCH (21:00)
[2017-06-09 07:20] VITALS: BP 135/73; PULSE 45; RESP 18; TEMP 97.7; O2SAT 98
[2017-06-09] MEDS ORDERED: INSULIN ASPART 100unit/ml INJECTION SQ SCH (07:30)
--- NOTE | 2017-06-09 08:11 | Endocrinology Progress Note ---
Subjective Principal diagnosis: Diabetes mellitus Interval history: Feels well. Good appetite. Finally in reasonable control this morning. Has mastered diabetes survival skills. Just dropped her sugar to 57 due to morning Novolog being administered without breakfast being present to eat. Exam Vital signs: Temperature 97.7 F 06/09/17 07:18 Pulse Rate 45 L 06/09/17 07:18 Respiratory Rate 18 06/09/17 07:18 Blood Pressure 135/73 06/09/17 07:18 Pulse Oximetry 98 06/09/17 07:18 - Constitutional no acute distress - Routine HEENT Exam Head: Present: normocephalic, atraumatic Eye: Present: EOMI, PERRL ENT: Present: mucous membranes moist - Routine Neck Exam Absent: lymphadenopathy, thyromegaly - Routine Respiratory Exam Absent: dyspnea - Routine Cardiovascular Exam Present: RRR. Absent: murmur - Routine Abdominal Exam Present: normoactive bowel sounds - Routine Extremities Exam Absent: edema - Routine Skin Exam Present: dry, warm - Routine Neurological Exam Present: alert, oriented X3, moving all extremities - Routine Psychiatric Exam Present: normal affect, normal thought process, good insight, good judgment - Additional findings Additional findings: Laboratory Tests 06/08/17 06/08/17 06/09/17 15:57 20:05 06:04 Glucometer 281 312 156 Assessment and Plan (1) Type 2 diabetes mellitus with hyperglycemia Current visit: Yes Status: Acute With steroids halted and insulin titrated up, glucose is coming into much better control. After seeing how her blood sugar is after breakfast, final adjustments can be made for dismissal. (2) Current use of insulin Current visit: Yes Status: Acute (3) Dyslipidemia (high LDL; low HDL) Current visit: Yes Status: Chronic (4) Morbid obesity with BMI of 40.0-44.9, adult Current visit: Yes Status: Chronic
[2017-06-09] MEDS: AMOX/CLAV 875 MG/125 MG TABLET PO SCH (08:23)
[2017-06-09] MEDS: PANTOPRAZOLE 40 MG INJECTION IVP SCH (08:23)
--- NOTE | 2017-06-09 10:32 | Work/School Release ---
Work/School Release - Date Date: 06/09/17 - Work Release Excused for:: Acute illness May return to work on:: Tuesday06/13/17 May resume normal activity on:: 06/13/17 (May have follow up Dr Gutiérrez next week)
--- NOTE | 2017-06-09 10:53 | Discharge Summary ---
Discharge Information Date of admission: 06/05/17 14:59 Anticipated date of discharge: 06/09/17 Attending Physician: Jun James MD Primary care physician: None Consults: Dr. Turpin-endocrinology Dr Peguero- ENT - Discharge Diagnosis (1) Bilateral otitis media with effusion Status: Acute (2) Diabetes mellitus, new onset Status: Chronic (3) Acute pain Status: Acute (4) Morbid obesity with BMI of 40.0-44.9, adult Status: Chronic 1. Severe bilateral OE with mastoiditis, failed outpatient treatment. 2. DM2, new onset and poorly controlled. Hemoglobin A1c was 11.8% 3. Acute pain 4. Morbid obesity 5. Hx of Asthma - Procedures Procedures: None - Laboratory Labs: 06/08/17 03:53 06/08/17 03:53 - Microbiology Microbiology 06/05/17 15:34 Peripheral/Iv Start Blood Culture - Preliminary No Growth After 3 Days 06/05/17 15:40 Peripheral/Iv Start Blood Culture - Preliminary No Growth After 3 Days - Radiology Radiology: 06/05/17-CT scan soft tissue neck- Impression: 1. Patient showed extensive soft tissue swelling with what appear to be a opacification of both external ear canals with minimal fluid in some of the mastoid air cells. 2. No marked sinus disease or soft tissue swelling about the nasal oropharynx. 3. Nonspecific cervical lymph nodes which are most likely reactive to the inflammatory changes in the external ears. 4. No additional acute findings. - Pathology None History of Present Illness HPI: Minerva is a very pleasant 32 yo female who has been struggling with severe ear pain since around . She attempted OTC analgesics, ear wax removal, etc. She continued to worsen, and was seen in Urgent Care with ear wick placement and antibiotic initiation. Left ear began hurting, so she presented to the ER. Ear wick to left ear was placed, antibiotics continued. She presented to the ER again today due to severity of pain, ongoing drainage, and difficulty closing mouth. She has a long history of recurrent ear infections , so she was attempting to manage at home to the best of her ability. She did undergo a CT, which confirmed bilateral OE, and also acute mastoiditis. Dr. Peguero was consulted by the ER, and is agreeable to seeing patient tomorrow. Patient reports that she did have a "cold" within the last two weeks. Those symptoms were fairly mild. Denies SOA or persistent cough currently. Her BG was found to be elevated in the ER- she has no person history of known DM. Multiple family members with diabetes. She also reports that her BP has been elevated intermittently at her recent UC/ ED visits. She does not think she has a prior history of HTN. No current PCP, so she has not had a physical in some time. Chart is reviewed- she is noted to have a history of GBS labial abscess in the past requiring local wound intervention. She denies history of surgical intervention. Has been otherwise healthy with the exception of intermittent asthma. Objective Vital signs: Temperature 97.7 F 06/09/17 07:18 Pulse Rate 45 L 06/09/17 07:18 Respiratory Rate 18 06/09/17 07:18 Blood Pressure 135/73 06/09/17 07:18 Pulse Oximetry 98 06/09/17 07:18 Height/Weight/BMI: Height 1.57 m Weight 108.9 kg Body Mass Index 42.7 - Constitutional Present: no acute distress, well nourished, well developed - Routine HEENT Exam Eye: Present: EOMI ENT: Present: mucous membranes moist, dentition normal - Routine Respiratory Exam Present: CTA bilaterally. Absent: wheezes - Routine Cardiovascular Exam Present: RRR, S1, S2. Absent: murmur - Routine Abdominal Exam Present: soft, normoactive bowel sounds, non distended. Absent: tenderness - Routine Extremities Exam Present: normal capillary refill - Routine Skin Exam Present: intact, dry, warm - Routine Neurological Exam Present: alert, oriented X3, CN II-XII intact, moving all extremities - Routine Lymphatic Exam Lymphatic: Absent: adenopathy - Routine Psychiatric Exam Present: normal affect, cooperative Hospital Course This is a general summary of the patient's hospital course. For more details refer to the complete medical record. Hospital course: 06/05/17 Consult ENT- Notified by ER. He will see tomorrow. Start IV Zosyn for broad coverage. Will ask RN to get cx of drainage if possible. Suspect difficulty with treating due to DM2. Will add steroids, pain control. Assess A1c, monitor Accu checks. I did d/w pt- we will use insulin right now- may be able to transition to oral meds before dismissal. Steroids will increase her BG- will need to monitor. SOFYA depending on pain. Assess thyroid, FLP. PRN Albuterol if any wheezing. 06/06/17 Continue Zosyn and Cortisporin otic, day #2. Anticipate evaluation by Dr. Peguero today. Symptoms are improving. White count has decreased to 16,000. She has been afebrile. BC pending. DC IVF. Taper IV steroids (Solu-Medrol 62.5 mg) from QID to TID. Continue Gambier suspension for pain control. Continue carbohydrate consistent diet and diabetic education. She will need outpatient education. Blood sugars continue to run very high, 300-400+. Will consult Dr. Turpin - discussed case with him and he will see her later today. TSH was normal at 3.69. Plan - 06/07/17 Overall. Minerva is doing well. Seen by Dr. Turpin (endocrinology) who continues to titrate insulin as needed. Continue current Novolog with 12 units at breakfast, 10 units at lunch and 10 units at dinner with Lantus 18 units HS. Monitor blood sugars closely. Continue Zosyn and Cortisporin otic, day #3. Anticipate evaluation by Dr. Peguero today. Symptoms are improving. She remains afebrile and WBC decreased to 14.7. Continue Solu-Medrol 62.5 mg TID. Will need to continue tapering. Will discuss tapering schedule with Dr. James. Continue Gambier suspension for pain control. Patient denies any current pain and has not needed pain medications. Continue carbohydrate consistent diet and diabetic education. She will need outpatient education. Blood sugars continue to run very high, 300-400+. Will recheck labs in AM to monitor blood counts, electrolytes and renal function. Overall, patient is doing very well and anticipate discharge in near future. 06/08 Appreciate ongoing guidance as per Dr. Turpin for better glycemic control. NovoLog has been increased to 34 units with meals, and Lantus 36 units with meals. She continues on Zosyn and Cortisporin otic, day #4. She received Solu-medrol this morning. Steroids then discontinued. This will help decrease blood sugars. Persistent leukocytosis, which may also be secondary to steroid use Continue to monitor sugars this afternoon, possible discharge later today or tomorrow. 1/25/18-discharge Patient is seen and examined prior to discharge. She is without any pain, reports is feeling much improved compared to admission. She feels that she has been well educated on her new onset diabetes for management, and outpatient monitoring of blood sugars. She will plan to follow with Dr. Turpin in 2 weeks. Did discuss discharge orders with him, will continue on current regimen of Lantus 36 units at at bedtime, NovoLog with meals-34 units at breakfast, 34 units at lunch, 36 units at supper. Patient is placed on Lipitor given onset of DM. We'll continue patient on 4 additional days of Augmentin twice a day as well as Cortisporin otic suspension, bilateral ears. Patient does have an appointment with Dr. Mejia for Tuesday06/13/17 at 1230. Patient does verbalize her plans to establish care with Dr. Barajas for primary care. Did speak with Dr. Barajas. She is happy to take patient on and advised her to call clinic to establish follow-up next week. All orders and plan discussed with attending, Dr. Pinzon. Patient discharged in stable condition Addendum: Seen and examined patient on same day as the above note. Agree with history, physical, assessment and plan. Comprehensive physical findings correlate to the above note by nurse practitioner Sunita Galeas. Documented on [employer] speech to text. Efforts to proofread and correct speech recognition errors performed, but variation may exist Time spent with patient: discharge greater than 30 minutes Resuscitation Status: Full Code Discharge Plan - Discharge Disposition Discharge Date: 06/09/17 Disposition: Discharged Home, Self-Care *Condition: Stable Reason For Visit (Visit label in EMR): bilateral otitis, lymphadenopathy, new onset diabe - Discharge Medications *Discharge Medications: New Atorvastatin [Lipitor] 10 mg PO HS #30 tab Insulin Glargine,Hum.rec.anlog [Lantus Solostar] 36 unit SQ HS #1 insuln.pen Amoxicillin/Potassium Clav [Amox-Clav 875-125 mg Tablet] 875 mg PO Q12HR #8 tab Insulin Aspart [Novolog Flexpen] 0 unit SQ TIDWM #1 insuln.pen Continue Neomycin/Polymyxin B/Hydrocort [Ueadunfw-Lvdwedoah-Wy Ear Soln] 4 drop RIGHT EAR QID No Action Hydrocodone/APAP 5/325 [Gambier 5/325] 1 tab PO Q6HR PRN #10 tab PRN Reason: pain Amoxicillin 500 mg PO TID Humalog KwikPen (insulin lispro) 100 unit/mL SQ PEN See Label Instructions SQ ACB #15 ml - Discharge Packet/Instructions *Diet: Carb consistant diet, 2200 calorie *Activity: Normal activity as tolerated *Pain Management/Treatment: Tylenol or ibuprofen as needed for pain control *Wound Care: None Additional Instructions: Take Augmentin and continue with eardrops until follow- up with Dr. Peguero on Tuesday 06/13. He may direct you further. Continue to check blood sugars fasting and 2 hours after meals. Record all blood sugars and take to Dr. Turpin appointment in 2 weeks. Monitor for evidence of low blood sugars. Contact his office if you have BGM <60. Take current insulin as directed. Call [facility] to schedule establish apt with Dr Barajas as planned- [phone]. *Expected Signs/Symptoms: Continued improvement in acute infection *Notify Physician if: Fever, chills, worsening ear pain or drainage or other concerning symptoms *During Business Hours Contact: Dr Turpin or Dr Peguero *After Business Hours Contact: [facility] oncall physician *Pending Lab/Results: No Pending Lab - Referrals/Follow Up *Referrals/Follow Up: Payam Turpin MD [Physician] - (Please schedule follow up apt for 1 week) Claudio Peguero MD [Physician] - (Follow up tuesday06/13/17 at [address] [place] [address] [address] - Patient Handouts Patient Handouts: Type 2 Diabetes in Adults (DC), Ear Infection (GEN) - Dismissal Complete Discharge Instructions are:: Complete Physician Narrative - Narrative Attestation Narrative: Date: 06/09/17 Time: 3246
[2017-06-09] MEDS ORDERED: INSULIN GLARGINE 100unit/ml INJECTION SQ SCH (21:00)
--- NOTE | 2017-06-13 08:55 | Consultation ---
ENT CONSULT NOTE DATE OF CONSULT 06/06/2017 CHIEF COMPLAINT Bilateral otitis media. HISTORY OF PRESENT ILLNESS This is a 32-year-old who presented with bilateral ear pain. She was seen in the ER and then admitted for severe otitis externa bilaterally. She had been treated with antibiotics and antibiotic drops without much improvement. She is found to have new onset of diabetes mellitus with an initial hemoglobin of 11.8 and she was admitted for control of that. She has had some trouble with ear infections in the past. No prior ear surgeries. Upon better control of her blood sugars and the start of drops as well as IV antibiotics, she had dramatic improvement in her air pain and largely resolution of her drainage by the time I saw her in the hospital. SOCIAL AND FAMILY HISTORY Unremarkable other than a strong family history for diabetes. LABORATORY/IMAGING FINDINGS Her lab tests again showed blood sugars in the 300s with an elevated A1c. I reviewed her CT scan. It showed bilateral otitis externa, some small amount of middle ear fluid which was reported to be mastoiditis, but this was more of an otitis externa with some inflammation rather than a true coalescent mastoiditis. EXAM She is awake and alert. She is not in acute distress. Ear exam shows mild swelling. She had annel placed and was treated with drops. The anenl are falling out. ASSESSMENT AND PLAN Bilateral otitis externa likely secondary to type 2 diabetes. Continue ear drops. Keep ears dry. I had a lengthy discussion with the patient. I will see her back in the office next week to further clean the ears. GISELA
== END 2017-06-09 11:55 | disposition home or self-care (01) | DRG 155 ==
LOC: ED 10:51 → MED 14:03 → SUATTDRO 14:59 → MED 14:59
PROVIDERS: ADMIT Internal Medicine; ATTEND Family Medicine